=== PATIENT | female | born 1995 | race Caucasian/White ===

== ENCOUNTER 2018-02-25 13:04 | Emergency (ER) | payer MEDICAID ==
[~2018-02-25] VITALS: Ht 162.6 cm; Wt 72.6 kg
[2018-02-25 13:09] VITALS: BP_SYST 128
[2018-02-25] MEDS ORDERED: CLINDAMYCIN HCL 150 MG CAPSULE PO ONE (14:30)
[2018-02-25 14:50] VITALS: BP_SYST 126
== END 2018-02-25 14:50 | disposition home or self-care (01) ==
LOC: SED 13:04
DX: L03.115 Cellulitis of right lower limb (principal)
CPT/HCPCS: 99283

== ENCOUNTER 2018-02-27 12:05 | Inpatient (IN) | payer MEDICAID ==
[~2018-02-27] VITALS: Ht 160 cm; Wt 78.0 kg
[2018-02-27 12:16] VITALS: BP_SYST 130
[2018-02-27] MEDS ORDERED: SODIUM BICARBONATE 8.4% VIAL 50 MEQ/50 ML VIAL INJ ONE (14:15)
[2018-02-27] MEDS ORDERED: fentaNYL CITRATE/PF 100 MCG/2 ML AMP IVP ONE (14:15)
[2018-02-27] MEDS ORDERED: LIDOCAINE/PRILOCAINE 5 GM CREAM (EMLA) TP ONE (14:15)
[2018-02-27] MEDS ORDERED: LIDOCAINE 2%, 20 ML MDV INJ ONE (14:15)
[2018-02-27] MEDS ORDERED: CEFAZOLIN 1 GM IVPB PREMIX 50 ML IV ONE (14:15)
[2018-02-27] MEDS ORDERED: DIPHENHYDRAMINE INJ 50 MG/ML VIAL IVP ONE (14:15)
[2018-02-27 14:35] LABS: BASOPHILS # (AUTO) 0.2 K/uL (0.0-0.2); BASOPHILS % (AUTO) 1.2 % (0.0-2.0); EOSINOPHILS # (AUTO) 0.6 K/uL (0.0-0.4); EOSINOPHILS % (AUTO) 3.6 % (0.0-4.0); HEMATOCRIT 40.5 % (36-48); HEMOGLOBIN 13.7 g/dL (12.0-16.0); LYMPHOCYTES # (AUTO) 3.3 K/uL (1.0-5.5); LYMPHOCYTES % (AUTO) 20.2 % (20.5-51.5); MEAN CORPUSCULAR HEMOGLOBIN 30 pg (27-31); MEAN CORPUSCULAR HGB CONC 34 % (32-36); MEAN CORPUSCULAR VOLUME 89 fL (79.0-98.0); MONOCYTES # (AUTO) 1.5 K/uL (0.0-1.0); MONOCYTES % (AUTO) 9.3 % (1.7-9.3); NEUTROPHILS # (AUTO) 10.9 K/uL (1.8-7.7); NEUTROPHILS % (AUTO) 65.7 % (40.0-70.0); PLATELET COUNT (AUTO) 267 K/uL (130-430); RED BLOOD CELL COUNT(AUTO) 4.53 MIL/uL (4.2-6.2); RED CELL DISTRIBUTION WIDTH 13.1 % (9.0-15.0); WHITE BLOOD COUNT (AUTO) 16.5 K/uL (4.8-10.8)
[2018-02-27 14:44] LABS: CALCIUM 9.4 mg/dL (8.4-11.0); CREATININE 0.72 mg/dL (0.55-1.30)
[2018-02-27] MEDS ORDERED: ONDANSETRON HCL 4 MG/2 ML VIAL IVP ONE (14:45)
[2018-02-27 14:49] LABS: ALBUMIN 3.6 g/dL (3.4-4.8); TOTAL BILIRUBIN 1.5 mg/dL (0.0-1.0)
[2018-02-27] MEDS ORDERED: VANCOMYCIN HCL 1,000 MG in NS 250 ML IV ONE (15:30)
[2018-02-27] MEDS ORDERED: NACL 0.9% 1,000 ML IV ONE (15:30)
[2018-02-27] MEDS ORDERED: VANCOMYCIN HCL 1000 MG/VIAL IV ONE (15:52)
[2018-02-27] MEDS: NACL 0.9% 1,000 ML IV SCH ×2 (16:56→18:00)
[2018-02-27] MEDS ORDERED: NACL 0.9% 250 ML IV SCH (17:00)
[2018-02-27 17:26] VITALS: BP_SYST 109
[2018-02-27 18:34] VITALS: BP_SYST 109
[2018-02-27] MEDS ORDERED: VANCOMYCIN HCL 1,000 MG in NS 250 ML IV SCH (19:30)
[2018-02-27 20:00] VITALS: BP_SYST 105
[2018-02-27] MEDS: VANCOMYCIN HCL 1,000 MG in NS 250 ML IV SCH (23:48)
[2018-02-28] VITALS: BP_SYST 105
[2018-02-28] MEDS: VANCOMYCIN HCL 1,000 MG in NS 250 ML IV SCH ×2 (07:58→16:26)
[2018-02-28 08:43] VITALS: BP_SYST 110
[2018-02-28 12:40] VITALS: BP_SYST 120
[2018-02-28] MEDS: CLINDAMYCIN 600 MG in D5W 50 ML IV SCH ×2 (14:20→21:20)
[2018-02-28 16:50] VITALS: BP_SYST 122
[2018-02-28 19:58] VITALS: BP_SYST 114
[2018-03-01] VITALS: BP_SYST 120
[2018-03-01] MEDS: VANCOMYCIN HCL 1,000 MG in NS 250 ML IV SCH ×2 (00:06→08:10)
[2018-03-01] MEDS: CLINDAMYCIN 600 MG in D5W 50 ML IV SCH ×2 (06:15→13:21)
[2018-03-01 06:28] LABS: BASOPHILS # (AUTO) 0.1 K/uL (0.0-0.2); EOSINOPHILS # (AUTO) 0.4 K/uL (0.0-0.4); EOSINOPHILS % (AUTO) 4.4 % (0.0-4.0); HEMOGLOBIN 12.7 g/dL (12.0-16.0); LYMPHOCYTES # (AUTO) 1.8 K/uL (1.0-5.5); LYMPHOCYTES % (AUTO) 19.3 % (20.5-51.5); MEAN CORPUSCULAR HEMOGLOBIN 31 pg (27-31); MEAN CORPUSCULAR HGB CONC 34 % (32-36); MEAN CORPUSCULAR VOLUME 90 fL (79.0-98.0); MONOCYTES # (AUTO) 0.9 K/uL (0.0-1.0); NEUTROPHILS # (AUTO) 6.1 K/uL (1.8-7.7); NEUTROPHILS % (AUTO) 65.3 % (40.0-70.0); PLATELET COUNT (AUTO) 265 K/uL (130-430); RED BLOOD CELL COUNT(AUTO) 4.12 MIL/uL (4.2-6.2); RED CELL DISTRIBUTION WIDTH 12.6 % (9.0-15.0); WHITE BLOOD COUNT (AUTO) 9.3 K/uL (4.8-10.8)
[2018-03-01 06:32] LABS: CALCIUM 8.7 mg/dL (8.4-11.0)
[2018-03-01 06:33] LABS: CREATININE 0.62 mg/dL (0.55-1.30); VANCOMYCIN,RANDOM 15.9 ug/mL
[2018-03-01 07:54] VITALS: BP_SYST 106
[2018-03-01 10:06] VITALS: BP_SYST 110
[2018-03-01] MEDS ORDERED: DOXY100T2 PO (10:06)
[2018-03-01 12:00] VITALS: BP_SYST 125
[2018-03-01] MEDS ORDERED: VANCOMYCIN HCL 1,250 MG in NS 250 ML IV SCH (16:00)
== END 2018-03-01 14:50 | disposition home or self-care (01) | DRG 383 ==
LOC: SED 12:05 → SMU 16:16
PROVIDERS: ADMIT Internal Medicine Hospice and Palliative Medicine; ATTEND Internal Medicine Hospice and Palliative Medicine
PROC: 0H9HXZZ Drainage of Right Upper Leg Skin, External Approach (ICD-10-PCS; principal; 2018-02-27)
DX: L02.415 Cutaneous abscess of right lower limb (principal); B95.62 Methicillin resistant Staphylococcus aureus infection as the cause of diseases classified elsewhere; F17.210 Nicotine dependence, cigarettes, uncomplicated; L03.115 Cellulitis of right lower limb; I10 Essential (primary) hypertension
CPT/HCPCS: 36415; 80048; 80053; 80202-TC; 83605; 85025; 87040-TC; 87070-TC; 87081; 87186-TC; 96365; 96366; 96367; 96375; 99285; J0690; J2001; J2405; J3010; J3370; J3490; J7030; J7050; J7060

== ENCOUNTER 2018-06-16 11:15 | Emergency (ER) | payer SELFPAY ==
[~2018-06-16] VITALS: Ht 160 cm; Wt 78.0 kg
[~2018-06-16 11:15] MED LIST: DOXY100T2 PO
[2018-06-16 11:29] VITALS: BP_SYST 134
[2018-06-16] MEDS ORDERED: NACL 0.9% 1,000 ML IV ONE (11:39)
[2018-06-16] MEDS ORDERED: cefTRIAXone 1 GM IVPB PREMIX 50 ML IV ONE (11:45)
[2018-06-16] MEDS ORDERED: KETOROLAC TROMETHAMINE 30 MG VIAL IVP ONE (11:45)
[2018-06-16 12:22] LABS: BASOPHILS # (AUTO) 0.1 K/uL (0.0-0.2); BASOPHILS % (AUTO) 1.3 % (0.0-2.0); EOSINOPHILS # (AUTO) 0.2 K/uL (0.0-0.4); EOSINOPHILS % (AUTO) 2.9 % (0.0-4.0); HEMATOCRIT 45.4 % (36-48); HEMOGLOBIN 15.4 g/dL (12.0-16.0); LYMPHOCYTES # (AUTO) 1.8 K/uL (1.0-5.5); LYMPHOCYTES % (AUTO) 25.7 % (20.5-51.5); MEAN CORPUSCULAR HEMOGLOBIN 30 pg (27-31); MEAN CORPUSCULAR HGB CONC 34 % (32-36); MEAN CORPUSCULAR VOLUME 87 fL (79.0-98.0); MONOCYTES # (AUTO) 0.7 K/uL (0.0-1.0); MONOCYTES % (AUTO) 10.1 % (1.7-9.3); NEUTROPHILS # (AUTO) 4.2 K/uL (1.8-7.7); PLATELET COUNT (AUTO) 315 K/uL (130-430); RED CELL DISTRIBUTION WIDTH 12.7 % (9.0-15.0)
[2018-06-16 12:47] LABS: CALCIUM 9.5 mg/dL (8.4-11.0); CREATININE 0.74 mg/dL (0.55-1.30); POTASSIUM 3.7 mmol/L (3.5-5.1)
[2018-06-16 12:51] LABS: ALBUMIN 4.4 g/dL (3.4-4.8); TOTAL BILIRUBIN 2.2 mg/dL (0.0-1.0)
[2018-06-16 13:05] LABS: BILIRUBIN,URINE NEGATIVE (NEGATIVE); BLOOD, URINE NEGATIVE (NEGATIVE); CLARITY/URINE CLEAR (CLEAR); COLOR,URINE YELLOW (YELLOW); GLUCOSE,URINE NEGATIVE (NEGATIVE); KETONES,URINE NEGATIVE (NEGATIVE); LEUKOCYTE ESTERASE ,URINE NEGATIVE (NEGATIVE); NITRITE, URINE NEGATIVE (NEGATIVE); PH,URINE 6.5 (5.0-8.0); PROTEIN URINE NEGATIVE (NEGATIVE); UROBILINOGEN,URINE 0.2 (0.2-1.0)
[2018-06-16 13:24] VITALS: BP_SYST 124
== END 2018-06-16 13:25 | disposition home or self-care (01) ==
LOC: SED 11:15
DX: R10.9 Unspecified abdominal pain (principal); R03.0 Elevated blood-pressure reading, without diagnosis of hypertension
CPT/HCPCS: 36415; 74018; 80053; 81003; 81025; 83690; 85025; 87040; 96365; 99284; J0696; J1885

== ENCOUNTER 2022-01-15 14:02 | Emergency (ER) | payer SELFPAY ==
[~2022-01-15] VITALS: Ht 160 cm; Wt 79.4 kg
[2022-01-15 14:21] VITALS: BP_SYST 121
--- NOTE | 2022-01-15 14:25 | NUR ---
Patient triaged and placed in waiting room. VSS and patient appears in no acute distress at this time. Accompanied by staff, awaiting available bed, and MD notified of need for MSE.
--- NOTE | 2022-01-15 14:30 | NUR ---
Assumed care of patient who came from home c/o a bug bite that was growing in diameter. Pt has a hx of sepsis caused by a bug bite. Patient shows no signs of distress, is calm and cooperative. Will continue to monitor and provide care as ordered.
--- NOTE | 2022-01-15 15:40 | NUR ---
ER DR. SINGH EXAMINING PT IN TRIAGE
[2022-01-15] MEDS ORDERED: CEPH-548 PO (15:42)
[2022-01-15] MEDS ORDERED: cefTRIAXone 1 GM in LIDOCAINE 1%, 20 ML MDV 2.1 ML IM ONE (15:45)
--- NOTE | 2022-01-15 16:24 | NUR ---
Patient given written and verbal discharge instructions and verbalizes understanding. ER Dr. Melissa LUCAS discussed with patient the results and treatment provided. Patient in stable condition. ID arm band removed. Rx of Doxycycline given. Patient educated on pain management and to follow up with PMD. Pain Scale 0/10. Opportunity for questions provided and answered. Medication side effect fact sheet provided.
[2022-01-15 16:26] VITALS: BP_SYST 121
== END 2022-01-15 16:26 | disposition home or self-care (01) ==
LOC: SED 14:02
DX: S70.362A Insect bite (nonvenomous), left thigh, initial encounter (principal); Z79.899 Other long term (current) drug therapy; W57.XXXA Bitten or stung by nonvenomous insect and other nonvenomous arthropods, initial encounter; Y93.89 Activity, other specified; Y92.89 Other specified places as the place of occurrence of the external cause; Y99.8 Other external cause status
CPT/HCPCS: 99283; 96372; J0696; J2001

== ENCOUNTER 2022-01-31 11:44 | Emergency (ER) | payer SELFPAY ==
[~2022-01-31] VITALS: Ht 160 cm; Wt 81.6 kg
[~2022-01-31 11:44] MED LIST changes: +CEPH-548 PO
--- NOTE | 2022-01-31 12:00 | NUR ---
Pt brought by self, A&Ox4, pt presents to ER with bugbite on L arm and juancarlos legs, afebrile, skin pink and warm, cap refill <3, VSS.
[2022-01-31 12:13] VITALS: BP_SYST 132
== END 2022-01-31 14:00 | disposition left against medical advice (07) ==
LOC: SED 11:44
DX: S80.862A Insect bite (nonvenomous), left lower leg, initial encounter (principal); S80.861A Insect bite (nonvenomous), right lower leg, initial encounter; Z53.21 Procedure and treatment not carried out due to patient leaving prior to being seen by health care provider; W57.XXXA Bitten or stung by nonvenomous insect and other nonvenomous arthropods, initial encounter; Y93.89 Activity, other specified; Y92.89 Other specified places as the place of occurrence of the external cause; Y99.8 Other external cause status